=== PATIENT | female | born 1985 | race Caucasian/White ===

== ENCOUNTER 2025-01-18 00:07 | Emergency (ER) | payer SELFPAY ==
[~2025-01-18] VITALS: Ht 157.5 cm; Wt 54.0 kg
[2025-01-18 00:17] VITALS: O2SAT 95
[2025-01-18] MEDS ORDERED: KETOROLAC 30MG/ML VIAL IV STA (00:29)
[2025-01-18] MEDS ORDERED: ONDANSETRON HCL 4MG/2ML INJ IV STA (00:29)
[2025-01-18] MEDS ORDERED: SODIUM CHLORIDE 0.9% 1,000 ML IV ONE (00:30)
[2025-01-18 01:30] VITALS: BP 110/66; PULSE 75; RESP 16; TEMP 37; O2SAT 98
== END 2025-01-18 01:38 | disposition left against medical advice (07) ==
LOC: ER 00:07
DX: R11.2 Nausea with vomiting, unspecified (principal); J45.909 Unspecified asthma, uncomplicated; Z79.899 Other long term (current) drug therapy
CPT/HCPCS: 99283; J7030